=== PATIENT | male | born 1950 | race Caucasian/White ===

== ENCOUNTER 2021-07-01 17:41 | Inpatient (IN) ==
[2021-07-01] MEDS ORDERED: DILTIAZEM 50 MG/10 ML VIAL IV ONE (18:04)
[2021-07-01] MEDS ORDERED: ETOMIDATE 20 MG/10 ML VIAL IV ONE (18:04)
[2021-07-01] MEDS ORDERED: VECURONIUM 10 MG VIAL IV ONE (18:04)
[2021-07-01] MEDS ORDERED: ROCURONIUM 100 MG/10 ML VIAL IV ONE (18:06)
[2021-07-01] MEDS ORDERED: DIGOXIN 0.5 MG/2 ML AMP ONE (18:15)
[2021-07-01] MEDS ORDERED: PIPERACILLIN/TAZOBACTAM 3,375 MG in SODIUM CHLORIDE 0.9% 100 ML IV STA (18:36)
[2021-07-01] MEDS ORDERED: methylPREDNISolone SOD SUC 125 MG/2 ML VIAL IV STA (18:36)
[2021-07-01] MEDS ORDERED: DILTIAZEM 100 MG VIAL.ADD IV ONE (19:01)
[2021-07-01 19:26] LABS: ABG Base Excess -1.3 MMOL/L (-2.5-2.5); ABG HCO3 23.4 MMOL/L (20-26); ABG Oxygen Saturation 99.8 % (95-100); ABG TCO2 26.3 MMOL/L (23-27)
[2021-07-01 19:28] LABS: ABG PCO2 72.6 MM HG (35-48); ABG PH 7.208 (7.35-7.45)
[2021-07-01] MEDS: DILTIAZEM INJ 100 MG in SODIUM CHLORIDE 0.9% 100 ML IV SCH (19:32)
[2021-07-01 19:40] LABS: Lactic Acid 4.6 MMOL/L (0.4-2.0)
[2021-07-01 19:44] LABS: Bilirubin,Total 0.9 MG/DL (0.20-1.00); Calcium 10.8 MG/DL (8.5-10.1); Osmolality,Calculated 300.7 MOS/KG (273-304); Potassium 3.9 MMOL/L (3.5-5.1)
[2021-07-01 20:13] LABS: Hyaline Casts,Urine 14 /LPF (0-3); Mucus,Urine Many /LPF (Occasional); RBC,Urine 1933 /HPF (0-4)
[2021-07-01 20:14] LABS: Urine Appearance Slightly Hazy (Clear); Urine Color Amber (Yellow)
[2021-07-01 20:15] LABS: Urine pH 5.5 (4.5-8.0)
[2021-07-01 20:16] LABS: Bilirubin,Urine Small mg/dL (Negative); Blood, Urine Large mg/dL (Negative); Glucose,Urine (UA) Negative (Negative); Ketones,Urine Negative (Negative); Nitrite,Urine Negative (Negative); Protein,Urine 100 MG/DL; Urine Specific Gravity > 1.030 (1.000-1.030)
[2021-07-01 20:34] LABS: Barbiturates Screen,Urine Negative (Negative); Benzodiazepines Screen,Urine Negative (Negative); Cannabinoid Screen,Urine Negative (Negative); Opiate Screen,Urine Positive (Negative); Phencyclidine Screen,Urine Negative (Negative)
[2021-07-01] MEDS ORDERED: SODIUM CHLORIDE 0.9% 1,000 ML IV STA ×2 (21:07→21:32)
[2021-07-01] MEDS ORDERED: DILTIAZEM 100 MG VIAL.ADD IV STA (21:08)
[2021-07-01 21:18] LABS: Basophils # 0.1 10*3/uL (0.0-0.2); Basophils % 0.5 % (0.0-0.8); Eosinophils # 0.1 10*3/uL (0.0-0.87); Eosinophils % 0.6 % (0.00-10.9); Hematocrit 44.8 VOL% (42.0-52.0); Hemoglobin 13.5 GM/DL (14.0-18.0); Immature Granulocytes % 0.9 %; Lymphocytes # 0.7 10*3/uL (1.4-4.0); Lymphocytes % 6.7 % (21.2-54.2); Mean Corpuscular HGB Conc 30.1 GM/DL (32-36); Mean Corpuscular Volume 98.2 FL (87-102); Mean Platelet Volume 10.4 FL (9.6-12.0); Monocytes % 16.7 % (1.7-12.7); NRBC # 0.03 10*3/uL; Neutrophils % 74.6 % (38.7-73.9); Platelet Count 205 T/CUMM (130-400); Red Blood Count 4.56 MC/CUMM (3.8-5.5); Red Cell Distribution Width 14.9 % (9.3-17.3); White Blood Count 10.8 T/CUMM (4-12)
[2021-07-01 21:45] LABS: Anisocytosis 1+; Band Neutrophils 26 % (0-10); Dohle Bodies 1+; Lymphocytes 3 % (20-55); Macrocytosis 1+; Metamyelocytes 10 %; Microcytosis Slight; Polychromasia 1+; Segmented Neutrophils 45 % (50-85); Total Cells Counted 100; Toxic Granulation 1+
[2021-07-01 21:46] LABS: Atypical Lymphocytes Few; Burr Cells Few; Hypochromia Slight; Poikilocytosis Few
[2021-07-01 21:47] LABS: Platelet Estimate Normal
[2021-07-01] MEDS ORDERED: SODIUM CHLORIDE 0.9% IV STA (22:03)
[2021-07-01] MEDS ORDERED: DIGOXIN IMMUNE FAB IV STA (22:03)
[2021-07-01] MEDS ORDERED: MIDAZOLAM 10 MG/2 ML VIAL ONE (22:30)
[2021-07-01] MEDS ORDERED: MIDAZOLAM 10 MG/2 ML VIAL IV STA (22:36)
[2021-07-01] MEDS: POTASSIUM CHLORIDE RIDER 20 MEQ/100 ML PREMIX IV SCH (22:39)
[2021-07-01] MEDS ORDERED: ACETAMINOPHEN 325 MG TABLET PO PRN (22:49)
[2021-07-01] MEDS ORDERED: ALBUTEROL 2.5 MG/3 ML NEB RESP TX PRN (22:49)
[2021-07-01] MEDS ORDERED: ONDANSETRON 4 MG/2 ML VIAL IV PRN (22:49)
[2021-07-01 23:00] LABS: PT Patient Result 52.4 SECS (10.5-12.0)
[2021-07-01 23:03] LABS: INR 5.2
[2021-07-01] MEDS: MIDAZOLAM 100 MG in SODIUM CHLORIDE 0.9% 80 ML IV PRN (23:22)
[2021-07-01 23:32] LABS: ABG Base Excess -0.2 MMOL/L (-2.5-2.5); ABG HCO3 24.3 MMOL/L (20-26); ABG Oxygen Saturation 99.8 % (95-100); ABG TCO2 23.6 MMOL/L (23-27)
[2021-07-01] MEDS: LACTATED RINGERS 1,000 ML IV SCH (23:45)
[2021-07-01] MEDS: NOREPINEPHRINE 8 MG in SODIUM CHLORIDE 0.9% 242 ML IV PRN (23:55)
[2021-07-01] MEDS ORDERED: NOREPINEPHRINE 4 MG/4 ML VIAL IV ONE (23:56)
[2021-07-02] MEDS: PANTOPRAZOLE 40 MG VIAL IV SCH ×2 (00:27→20:57)
[2021-07-02] MEDS: VANCOMYCIN INJ 1,000 MG in SODIUM CHLORIDE 0.9% 250 ML IV SCH ×2 (00:27→12:14)
[2021-07-02] MEDS: ALBUTEROL/IPRATROPIUM 3 ML NEB RESP TX SCH ×4 (00:39→19:35)
[2021-07-02] MEDS: POTASSIUM CHLORIDE RIDER 20 MEQ/100 ML PREMIX IV SCH (00:54)
[2021-07-02 04:08] LABS: ABG Base Excess -3.6 MMOL/L (-2.5-2.5); ABG Oxygen Saturation 99.4 % (95-100); ABG PCO2 54.7 MM HG (35-48); ABG PO2 313.1 MM HG (80-95); ABG TCO2 25.7 MMOL/L (23-27)
[2021-07-02] MEDS: methylPREDNISolone SOD SUC 40 MG/1 ML VIAL IV SCH ×3 (05:07→18:05)
[2021-07-02] MEDS: PIPERACILLIN/TAZOBACTAM 3,375 MG in SODIUM CHLORIDE 0.9% 100 ML IV SCH ×3 (05:08→20:58)
[2021-07-02 05:15] LABS: Basophils # 0.1 10*3/uL (0.0-0.2); Basophils % 0.5 % (0.0-0.8); Hematocrit 39.2 VOL% (42.0-52.0); Immature Granulocytes % 1.1 %; Immature Granulocytes Absolute 0.17 #; Lymphocytes # 0.5 10*3/uL (1.4-4.0); Lymphocytes % 3.6 % (21.2-54.2); Mean Corpuscular HGB Conc 30.6 GM/DL (32-36); Mean Corpuscular Volume 97.3 FL (87-102); Mean Platelet Volume 10.4 FL (9.6-12.0); Monocytes % 6.3 % (1.7-12.7); NRBC # 0.02 10*3/uL; Neutrophils % 88.5 % (38.7-73.9); Platelet Count 213 T/CUMM (130-400); Red Blood Count 4.03 MC/CUMM (3.8-5.5); Red Cell Distribution Width 14.8 % (9.3-17.3); White Blood Count 14.9 T/CUMM (4-12)
[2021-07-02 05:32] LABS: PT Patient Result 57.8 SECS (10.5-12.0)
[2021-07-02 05:34] LABS: INR 5.8
[2021-07-02 05:40] LABS: Band Neutrophils 14 % (0-10); Lymphocytes 4 % (20-55); Metamyelocytes 1 %; Myelocytes 1 %; Platelet Estimate Adequate; Segmented Neutrophils 73 % (50-85); Total Cells Counted 100
[2021-07-02 06:00] LABS: Albumin 2.4 G/DL (3.4-5.0); Bilirubin,Total 0.9 MG/DL (0.20-1.00); Calcium 9.4 MG/DL (8.5-10.1); Osmolality,Calculated 305.6 MOS/KG (273-304); Potassium 4.7 MMOL/L (3.5-5.1); Total Protein 6.1 G/DL (6.4-8.2)
[2021-07-02] MEDS: DILTIAZEM INJ 100 MG in SODIUM CHLORIDE 0.9% 100 ML IV SCH ×4 (06:27→20:44)
[2021-07-02] MEDS ORDERED: METOPROLOL TARTRATE 5 MG/5 ML VIAL IV ONE ×2 (06:35→14:55)
[2021-07-02] MEDS: LACTATED RINGERS 1,000 ML IV SCH ×2 (07:53→15:53)
[2021-07-02] MEDS ORDERED: SODIUM CHLORIDE 0.9% 1,000 ML IV ONE (09:58)
[2021-07-02] MEDS ORDERED: LACTATED RINGERS 1,000 ML IV ONE (10:10)
[2021-07-02] MEDS ORDERED: GLUCAGON 1 MG VIAL IM PRN (10:14)
[2021-07-02] MEDS ORDERED: DEXTROSE 10% 25 GM/250 ML BAG IV PRN (10:14)
[2021-07-02] MEDS: METOPROLOL TARTRATE 5 MG/5 ML VIAL IV PRN ×2 (10:50→20:57)
[2021-07-02 11:01] LABS: ABG Base Excess -6.1 MMOL/L (-2.5-2.5); ABG HCO3 19.4 MMOL/L (20-26); ABG Oxygen Saturation 96.4 % (95-100); ABG PCO2 53.3 MM HG (35-48); ABG PH 7.227 (7.35-7.45); ABG PO2 95.9 MM HG (80-95); ABG TCO2 20.2 MMOL/L (23-27)
[2021-07-02] MEDS: PHENYLEPHRINE DRIP 40 MG/250 ML PREMIX IV PRN ×3 (11:12→18:05)
[2021-07-02] MEDS: INSULIN LISPRO 100 UNIT/ML SUBCUT SCH ×2 (11:32→17:39)
[2021-07-02 13:10] LABS: ABG Base Excess -5.4 MMOL/L (-2.5-2.5); ABG Oxygen Saturation 95.5 % (95-100); ABG PH 7.262 (7.35-7.45); ABG PO2 90.3 MM HG (80-95); ABG TCO2 19.9 MMOL/L (23-27)
[2021-07-02] MEDS ORDERED: SODIUM CHLORIDE 0.9% 500 ML IV ONE ×2 (14:55→16:59)
[2021-07-02 15:40] LABS: ABG Base Excess -6.8 MMOL/L (-2.5-2.5); ABG HCO3 18.9 MMOL/L (20-26); ABG Oxygen Saturation 97.1 % (95-100); ABG PCO2 47.8 MM HG (35-48); ABG PH 7.245 (7.35-7.45); ABG TCO2 18.8 MMOL/L (23-27)
[2021-07-02] MEDS ORDERED: NOREPINEPHRINE 4 MG/4 ML VIAL IV ONE (15:44)
[2021-07-02] MEDS: NOREPINEPHRINE 8 MG in SODIUM CHLORIDE 0.9% 242 ML IV PRN (15:49)
[2021-07-02 16:24] LABS: Basophils # 0.2 10*3/uL (0.0-0.2); Basophils % 0.6 % (0.0-0.8); Hematocrit 39.5 VOL% (42.0-52.0); Immature Granulocytes Absolute 1.07 #; Lymphocytes # 0.4 10*3/uL (1.4-4.0); Lymphocytes % 1.6 % (21.2-54.2); Mean Corpuscular HGB Conc 30.4 GM/DL (32-36); Mean Platelet Volume 10.4 FL (9.6-12.0); Monocytes % 4.1 % (1.7-12.7); NRBC # 0.15 10*3/uL; Neutrophils % 89.7 % (38.7-73.9); Platelet Count 273 T/CUMM (130-400); Red Blood Count 4.03 MC/CUMM (3.8-5.5)
[2021-07-02 16:42] LABS: Blood Urea Nitrogen 55 MG/DL (7-18); Calcium 9.6 MG/DL (8.5-10.1); Carbon Dioxide 20 MMOL/L (21-32); Estimated Glom Filtration Rate 55 ML/MIN; Glucose 130 MG/DL (74-106); Osmolality,Calculated 304.7 MOS/KG (273-304); Potassium 4.5 MMOL/L (3.5-5.1); Sodium 145 MMOL/L (136-145)
[2021-07-02 17:45] LABS: Band Neutrophils 1 % (0-10); Lymphocytes 5 % (20-55); Metamyelocytes 4 %; Nucleated Red Blood Cells 1 (0-5); Segmented Neutrophils 78 % (50-85); Total Cells Counted 100
[2021-07-02 17:46] LABS: Platelet Estimate Normal
[2021-07-02] MEDS ORDERED: AMIODARONE INJ 150 MG in DEXTROSE 5% 100 ML IV ONE (18:25)
[2021-07-02] MEDS ORDERED: LORazepam 2 MG/1 ML VIAL IV PRN (18:26)
[2021-07-02] MEDS ORDERED: AMIODARONE 150 MG/3 ML VIAL ONE (18:28)
[2021-07-02] MEDS ORDERED: MORPHINE 4 MG/1 ML VIAL ONE (18:28)
[2021-07-02] MEDS ORDERED: MORPHINE 4 MG/1 ML VIAL IV PRN (18:36)
[2021-07-02] MEDS: PHENYLEPHRINE INJ 160 MG in SODIUM CHLORIDE 0.9% 234 ML IV PRN (20:12)
[2021-07-02] MEDS: DOCUSATE/SENNA 50-8.6 MG TABLET PO SCH (20:57)
[2021-07-02] MEDS: DIVALPROEX 250 MG TABLET PO SCH (20:57)
[2021-07-03] MEDS: LACTATED RINGERS 1,000 ML IV SCH ×3 (00:15→17:00)
[2021-07-03] MEDS: VANCOMYCIN INJ 1,000 MG in SODIUM CHLORIDE 0.9% 250 ML IV SCH (00:31)
[2021-07-03] MEDS: INSULIN LISPRO 100 UNIT/ML SUBCUT SCH ×4 (00:33→18:22)
[2021-07-03] MEDS: ALBUTEROL/IPRATROPIUM 3 ML NEB RESP TX SCH ×4 (01:15→19:07)
[2021-07-03 04:01] LABS: ABG Base Excess -6.6 MMOL/L (-2.5-2.5); ABG Oxygen Saturation 95.1 % (95-100); ABG PCO2 50.3 MM HG (35-48); ABG PH 7.234 (7.35-7.45); ABG PO2 87.1 MM HG (80-95); ABG TCO2 19.4 MMOL/L (23-27)
[2021-07-03 04:03] LABS: Basophils # 0.2 10*3/uL (0.0-0.2); Basophils % 0.6 % (0.0-0.8); Immature Granulocytes Absolute 0.58 #; Lymphocytes # 0.9 10*3/uL (1.4-4.0); Lymphocytes % 3.2 % (21.2-54.2); Mean Corpuscular HGB Conc 30.8 GM/DL (32-36); Mean Corpuscular Volume 96.5 FL (87-102); Mean Platelet Volume 10.1 FL (9.6-12.0); Monocytes % 3.7 % (1.7-12.7); NRBC # 0.25 10*3/uL; Neutrophils % 90.5 % (38.7-73.9); Platelet Count 290 T/CUMM (130-400); Red Blood Count 4.04 MC/CUMM (3.8-5.5); Red Cell Distribution Width 15.2 % (9.3-17.3); White Blood Count 29.1 T/CUMM (4-12)
[2021-07-03] MEDS: PIPERACILLIN/TAZOBACTAM 3,375 MG in SODIUM CHLORIDE 0.9% 100 ML IV SCH ×3 (04:17→20:56)
[2021-07-03] MEDS: methylPREDNISolone SOD SUC 40 MG/1 ML VIAL IV SCH ×3 (04:18→19:51)
[2021-07-03] MEDS: DILTIAZEM INJ 100 MG in SODIUM CHLORIDE 0.9% 100 ML IV SCH (04:20)
[2021-07-03] MEDS: PHENYLEPHRINE INJ 160 MG in SODIUM CHLORIDE 0.9% 234 ML IV PRN ×3 (04:20→23:09)
[2021-07-03 04:27] LABS: Band Neutrophils 4 % (0-10); Hypochromia Slight; Lymphocytes 3 % (20-55); Microcytosis Slight; Myelocytes 1 %; Nucleated Red Blood Cells 3 (0-5); Platelet Estimate Adequate; Segmented Neutrophils 85 % (50-85); Total Cells Counted 100
[2021-07-03 04:36] LABS: Albumin 1.9 G/DL (3.4-5.0); Bilirubin,Total 1.3 MG/DL (0.20-1.00); Calcium 9.1 MG/DL (8.5-10.1); Osmolality,Calculated 311.4 MOS/KG (273-304); Potassium 4.3 MMOL/L (3.5-5.1); Total Protein 6.2 G/DL (6.4-8.2)
[2021-07-03 04:59] LABS: PT Patient Result 112.2 SECS (10.5-12.0)
[2021-07-03 05:00] LABS: INR 12.1
[2021-07-03 05:02] LABS: Free T4 (Free Thyroxine) 1.2 NG/DL (0.76-1.46); Thyroid Stimulating Hormone 0.348 uIU/ml (0.358-3.74)
[2021-07-03] MEDS: NICOTINE 21 MG/24 HR PATCH TRANSDERM SCH ×2 (05:20→08:05)
[2021-07-03] MEDS ORDERED: PHYTONADIONE 5 MG/5 ML ORAL.SYR PO ONE (05:23)
[2021-07-03] MEDS ORDERED: SODIUM CHLORIDE 0.45% 1,000 ML IV ONE (08:06)
[2021-07-03] MEDS: DOCUSATE/SENNA 50-8.6 MG TABLET PO SCH ×2 (08:07→20:55)
[2021-07-03] MEDS: METOPROLOL TARTRATE 5 MG/5 ML VIAL IV PRN ×3 (11:57→19:51)
[2021-07-03] MEDS: fentaNYL INJ 1,250 MCG in SODIUM CHLORIDE 0.9% 225 ML IV PRN (15:45)
[2021-07-03] MEDS ORDERED: AMIODARONE INJ 150 MG in DEXTROSE 5% 100 ML IV ONE ×3 (17:23→18:00)
[2021-07-03] MEDS ORDERED: AMIODARONE INJ 450 MG in DEXTROSE 5% 241 ML IV SCH (17:30)
[2021-07-03] MEDS: METOCLOPRAMIDE 10 MG/2 ML VIAL IV SCH (18:28)
[2021-07-03] MEDS: DIVALPROEX 250 MG TABLET PO SCH (20:54)
[2021-07-03] MEDS: busPIRone 10 MG TABLET PO SCH (20:54)
[2021-07-03] MEDS: PANTOPRAZOLE 40 MG VIAL IV SCH (20:55)
[2021-07-03] MEDS: TOPIRAMATE 100 MG TABLET PO SCH (20:55)
[2021-07-04] MEDS: INSULIN LISPRO 100 UNIT/ML SUBCUT SCH ×5 (00:47→23:13)
[2021-07-04] MEDS: ALBUTEROL/IPRATROPIUM 3 ML NEB RESP TX SCH ×4 (00:52→19:53)
[2021-07-04] MEDS: METOCLOPRAMIDE 10 MG/2 ML VIAL IV SCH ×5 (01:45→23:43)
[2021-07-04] MEDS: VANCOMYCIN INJ 1,000 MG in SODIUM CHLORIDE 0.9% 250 ML IV SCH (01:45)
[2021-07-04] MEDS: methylPREDNISolone SOD SUC 40 MG/1 ML VIAL IV SCH ×3 (02:25→18:36)
[2021-07-04] MEDS: AMIODARONE INJ 450 MG in DEXTROSE 5% 241 ML IV SCH ×2 (02:25→18:17)
[2021-07-04] MEDS: LACTATED RINGERS 1,000 ML IV SCH (02:25)
[2021-07-04] MEDS: MIDAZOLAM 100 MG in SODIUM CHLORIDE 0.9% 80 ML IV PRN (03:23)
[2021-07-04] MEDS: PIPERACILLIN/TAZOBACTAM 3,375 MG in SODIUM CHLORIDE 0.9% 100 ML IV SCH ×3 (04:09→20:22)
[2021-07-04 04:16] LABS: Basophils # 0.1 10*3/uL (0.0-0.2); Basophils % 0.3 % (0.0-0.8); Hemoglobin 11.7 GM/DL (14.0-18.0); Immature Granulocytes % 3.2 %; Immature Granulocytes Absolute 1.24 #; Lymphocytes # 1.1 10*3/uL (1.4-4.0); Lymphocytes % 2.8 % (21.2-54.2); Mean Corpuscular HGB Conc 31.6 GM/DL (32-36); Mean Corpuscular Volume 94.4 FL (87-102); Mean Platelet Volume 9.7 FL (9.6-12.0); Monocytes % 2.6 % (1.7-12.7); NRBC # 0.35 10*3/uL; Neutrophils % 91.1 % (38.7-73.9); Platelet Count 277 T/CUMM (130-400); Red Blood Count 3.92 MC/CUMM (3.8-5.5); Red Cell Distribution Width 15.6 % (9.3-17.3); White Blood Count 38.6 T/CUMM (4-12)
[2021-07-04 04:20] LABS: ABG Base Excess -4.1 MMOL/L (-2.5-2.5); ABG Oxygen Saturation 98.7 % (95-100); ABG PCO2 47.6 MM HG (35-48); ABG PH 7.288 (7.35-7.45); ABG TCO2 20.6 MMOL/L (23-27)
[2021-07-04 04:28] LABS: INR 1.7; PT Patient Result 18.2 SECS (10.5-12.0)
[2021-07-04 05:10] LABS: Albumin 1.8 G/DL (3.4-5.0); Bilirubin,Total 0.9 MG/DL (0.20-1.00); Calcium 9.3 MG/DL (8.5-10.1); Osmolality,Calculated 313.6 MOS/KG (273-304); Potassium 4.7 MMOL/L (3.5-5.1)
[2021-07-04] MEDS: fentaNYL INJ 1,250 MCG in SODIUM CHLORIDE 0.9% 225 ML IV PRN (05:19)
[2021-07-04 05:30] LABS: Band Neutrophils 5 % (0-10); Lymphocytes 7 % (20-55); Nucleated Red Blood Cells 1 (0-5); Platelet Estimate Normal; Segmented Neutrophils 85 % (50-85); Total Cells Counted 100
[2021-07-04] MEDS: LEVOTHYROXINE 75 MCG TABLET PO SCH (05:46)
[2021-07-04] MEDS ORDERED: INFLUENZA VIRUS VACCINE 0.5 ML SYRINGE IM ONE (08:00)
[2021-07-04] MEDS: NICOTINE 21 MG/24 HR PATCH TRANSDERM SCH (08:07)
[2021-07-04] MEDS: ASPIRIN EC 81 MG TABLET PO SCH (08:07)
[2021-07-04] MEDS: TOPIRAMATE 100 MG TABLET PO SCH ×2 (08:07→20:21)
[2021-07-04] MEDS: busPIRone 10 MG TABLET PO SCH ×2 (08:07→20:21)
[2021-07-04] MEDS: DOCUSATE/SENNA 50-8.6 MG TABLET PO SCH ×2 (08:07→20:21)
[2021-07-04] MEDS: LACTULOSE 20 GM/30 ML UDCUP PO SCH (08:07)
[2021-07-04] MEDS: METOPROLOL TARTRATE 5 MG/5 ML VIAL IV PRN (08:27)
[2021-07-04] MEDS: PHENYLEPHRINE INJ 160 MG in SODIUM CHLORIDE 0.9% 234 ML IV PRN (10:47)
[2021-07-04] MEDS ORDERED: DIGOXIN 0.5 MG/2 ML AMP IV ONE (12:16)
[2021-07-04] MEDS: ENOXAPARIN 80 MG/0.8 ML SYRINGE SUBCUT SCH (12:52)
[2021-07-04] MEDS: WARFARIN 2.5 MG TABLET PO SCH (18:28)
[2021-07-04] MEDS: SIMVASTATIN 40 MG TABLET PO SCH (20:21)
[2021-07-04] MEDS: DIVALPROEX 250 MG TABLET PO SCH (20:21)
[2021-07-04] MEDS: PANTOPRAZOLE 40 MG VIAL IV SCH (20:22)
[2021-07-05] MEDS: ENOXAPARIN 80 MG/0.8 ML SYRINGE SUBCUT SCH ×2 (00:09→12:57)
[2021-07-05] MEDS: ALBUTEROL/IPRATROPIUM 3 ML NEB RESP TX SCH ×4 (00:36→19:50)
[2021-07-05] MEDS: VANCOMYCIN INJ 1,000 MG in SODIUM CHLORIDE 0.9% 250 ML IV SCH (00:43)
[2021-07-05 03:59] LABS: Basophils # 0.1 10*3/uL (0.0-0.2); Basophils % 0.3 % (0.0-0.8); Hematocrit 33.5 VOL% (42.0-52.0); Hemoglobin 10.4 GM/DL (14.0-18.0); Immature Granulocytes % 4.1 %; Immature Granulocytes Absolute 1.33 #; Lymphocytes # 1.5 10*3/uL (1.4-4.0); Lymphocytes % 4.6 % (21.2-54.2); Mean Platelet Volume 9.7 FL (9.6-12.0); Monocytes % 3.2 % (1.7-12.7); NRBC # 0.11 10*3/uL; Neutrophils % 87.8 % (38.7-73.9); Platelet Count 187 T/CUMM (130-400); Red Blood Count 3.49 MC/CUMM (3.8-5.5); Red Cell Distribution Width 15.9 % (9.3-17.3); White Blood Count 32.2 T/CUMM (4-12)
[2021-07-05 04:12] LABS: INR 1.4; PT Patient Result 15.5 SECS (10.5-12.0)
[2021-07-05] MEDS: methylPREDNISolone SOD SUC 40 MG/1 ML VIAL IV SCH ×3 (04:14→18:26)
[2021-07-05 04:15] LABS: ABG Base Excess -1.6 MMOL/L (-2.5-2.5); ABG HCO3 23.1 MMOL/L (20-26); ABG Oxygen Saturation 98.7 % (95-100); ABG PCO2 47.2 MM HG (35-48); ABG PH 7.325 (7.35-7.45); ABG TCO2 22.6 MMOL/L (23-27)
[2021-07-05] MEDS: PIPERACILLIN/TAZOBACTAM 3,375 MG in SODIUM CHLORIDE 0.9% 100 ML IV SCH ×3 (04:15→20:23)
[2021-07-05 04:21] LABS: Band Neutrophils 1 % (0-10); Hypochromia Slight; Lymphocytes 6 % (20-55); Microcytosis Slight; Platelet Estimate Adequate; Segmented Neutrophils 90 % (50-85); Total Cells Counted 100
[2021-07-05] MEDS: PHENYLEPHRINE INJ 160 MG in SODIUM CHLORIDE 0.9% 234 ML IV PRN (04:35)
[2021-07-05 04:56] LABS: Albumin 1.7 G/DL (3.4-5.0); Bilirubin,Total 0.7 MG/DL (0.20-1.00); Calcium 9.1 MG/DL (8.5-10.1); Osmolality,Calculated 317.3 MOS/KG (273-304); Potassium 4.1 MMOL/L (3.5-5.1); Total Protein 5.5 G/DL (6.4-8.2)
[2021-07-05] MEDS: INSULIN LISPRO 100 UNIT/ML SUBCUT SCH ×3 (05:22→17:39)
[2021-07-05] MEDS: METOCLOPRAMIDE 10 MG/2 ML VIAL IV SCH ×3 (05:22→17:39)
[2021-07-05] MEDS: LEVOTHYROXINE 75 MCG TABLET PO SCH (05:37)
[2021-07-05] MEDS: NICOTINE 21 MG/24 HR PATCH TRANSDERM SCH (08:27)
[2021-07-05] MEDS: LACTULOSE 20 GM/30 ML UDCUP PO SCH (08:27)
[2021-07-05] MEDS: busPIRone 10 MG TABLET PO SCH ×2 (08:27→20:24)
[2021-07-05] MEDS: ASPIRIN EC 81 MG TABLET PO SCH (08:27)
[2021-07-05] MEDS: DOCUSATE/SENNA 50-8.6 MG TABLET PO SCH ×2 (08:27→20:23)
[2021-07-05] MEDS: TOPIRAMATE 100 MG TABLET PO SCH ×2 (08:27→20:23)
[2021-07-05] MEDS: AMIODARONE INJ 450 MG in DEXTROSE 5% 241 ML IV SCH (11:23)
[2021-07-05] MEDS: fentaNYL INJ 1,250 MCG in SODIUM CHLORIDE 0.9% 225 ML IV PRN (11:43)
[2021-07-05] MEDS: WARFARIN 5 MG TABLET PO SCH (17:38)
[2021-07-05] MEDS: DIVALPROEX 250 MG TABLET PO SCH (20:23)
[2021-07-05] MEDS: PANTOPRAZOLE 40 MG VIAL IV SCH (20:23)
[2021-07-05] MEDS: SIMVASTATIN 40 MG TABLET PO SCH (20:23)
[2021-07-06] MEDS: INSULIN LISPRO 100 UNIT/ML SUBCUT SCH ×5 (00:01→23:23)
[2021-07-06] MEDS: METOCLOPRAMIDE 10 MG/2 ML VIAL IV SCH ×4 (00:02→18:26)
[2021-07-06] MEDS: ENOXAPARIN 80 MG/0.8 ML SYRINGE SUBCUT SCH ×2 (00:02→13:43)
[2021-07-06] MEDS: VANCOMYCIN INJ 1,000 MG in SODIUM CHLORIDE 0.9% 250 ML IV SCH (00:02)
[2021-07-06] MEDS: ALBUTEROL/IPRATROPIUM 3 ML NEB RESP TX SCH ×4 (01:39→19:00)
[2021-07-06] MEDS: AMIODARONE INJ 450 MG in DEXTROSE 5% 241 ML IV SCH ×2 (02:11→05:51)
[2021-07-06] MEDS: methylPREDNISolone SOD SUC 40 MG/1 ML VIAL IV SCH ×3 (03:09→19:10)
[2021-07-06 04:05] LABS: ABG Base Excess 0.5 MMOL/L (-2.5-2.5); ABG HCO3 24.9 MMOL/L (20-26); ABG Oxygen Saturation 98.7 % (95-100); ABG PCO2 46.7 MM HG (35-48); ABG PH 7.358 (7.35-7.45); ABG TCO2 24.2 MMOL/L (23-27)
[2021-07-06 04:15] LABS: Basophils % 0.1 % (0.0-0.8); Hematocrit 31.4 VOL% (42.0-52.0); Hemoglobin 9.9 GM/DL (14.0-18.0); Immature Granulocytes % 3.4 %; Immature Granulocytes Absolute 0.77 #; Lymphocytes # 1.2 10*3/uL (1.4-4.0); Lymphocytes % 5.2 % (21.2-54.2); Mean Corpuscular HGB Conc 31.5 GM/DL (32-36); Mean Corpuscular Volume 94.6 FL (87-102); Mean Platelet Volume 9.4 FL (9.6-12.0); Monocytes % 2.8 % (1.7-12.7); NRBC # 0.06 10*3/uL; Neutrophils % 88.5 % (38.7-73.9); Platelet Count 129 T/CUMM (130-400); Red Blood Count 3.32 MC/CUMM (3.8-5.5); Red Cell Distribution Width 15.6 % (9.3-17.3); White Blood Count 22.5 T/CUMM (4-12)
[2021-07-06] MEDS: PIPERACILLIN/TAZOBACTAM 3,375 MG in SODIUM CHLORIDE 0.9% 100 ML IV SCH (04:15)
[2021-07-06 04:24] LABS: INR 1.5; PT Patient Result 16.8 SECS (10.5-12.0)
[2021-07-06 04:33] LABS: Hypochromia Slight; Lymphocytes 3 % (20-55); Platelet Estimate Normal; Segmented Neutrophils 94 % (50-85); Total Cells Counted 100
[2021-07-06 04:34] LABS: Microcytosis Slight
[2021-07-06 04:47] LABS: Albumin 1.7 G/DL (3.4-5.0); Bilirubin,Total 0.5 MG/DL (0.20-1.00); Calcium 8.9 MG/DL (8.5-10.1); Osmolality,Calculated 315.1 MOS/KG (273-304); Potassium 4.1 MMOL/L (3.5-5.1); Total Protein 5.4 G/DL (6.4-8.2)
[2021-07-06] MEDS: LEVOTHYROXINE 75 MCG TABLET PO SCH (06:04)
[2021-07-06] MEDS ORDERED: POTASSIUM PHOSPHATE 30 MMOL in SODIUM CHLORIDE 0.9% 250 ML IV ONE (09:00)
[2021-07-06] MEDS: NICOTINE 21 MG/24 HR PATCH TRANSDERM SCH (09:35)
[2021-07-06] MEDS: TOPIRAMATE 100 MG TABLET PO SCH ×2 (09:36→20:11)
[2021-07-06] MEDS: busPIRone 10 MG TABLET PO SCH ×2 (09:36→20:11)
[2021-07-06] MEDS: ASPIRIN EC 81 MG TABLET PO SCH (09:36)
[2021-07-06] MEDS: DOCUSATE/SENNA 50-8.6 MG TABLET PO SCH ×2 (09:36→20:11)
[2021-07-06] MEDS: LACTULOSE 20 GM/30 ML UDCUP PO SCH (09:42)
[2021-07-06] MEDS: METOPROLOL TARTRATE 25 MG TABLET PO SCH ×2 (10:43→20:11)
[2021-07-06] MEDS: cefTRIAXone 1,000 MG in SODIUM CHLORIDE 0.9% 100 ML IV SCH (13:43)
[2021-07-06] MEDS: WARFARIN 5 MG TABLET PO SCH (18:24)
[2021-07-06] MEDS: MIDAZOLAM 100 MG in SODIUM CHLORIDE 0.9% 80 ML IV PRN (18:28)
[2021-07-06] MEDS: DIVALPROEX 250 MG TABLET PO SCH (20:11)
[2021-07-06] MEDS: PANTOPRAZOLE 40 MG VIAL IV SCH (20:11)
[2021-07-06] MEDS: SIMVASTATIN 40 MG TABLET PO SCH (20:11)
[2021-07-07] MEDS: ENOXAPARIN 80 MG/0.8 ML SYRINGE SUBCUT SCH ×3 (00:06→23:56)
[2021-07-07] MEDS: VANCOMYCIN INJ 1,000 MG in SODIUM CHLORIDE 0.9% 250 ML IV SCH (00:06)
[2021-07-07] MEDS: METOCLOPRAMIDE 10 MG/2 ML VIAL IV SCH ×5 (00:06→23:56)
[2021-07-07] MEDS: ALBUTEROL/IPRATROPIUM 3 ML NEB RESP TX SCH ×4 (01:19→21:35)
[2021-07-07] MEDS: methylPREDNISolone SOD SUC 40 MG/1 ML VIAL IV SCH ×3 (03:40→18:59)
[2021-07-07 04:13] LABS: ABG Base Excess 3.1 MMOL/L (-2.5-2.5); ABG HCO3 27.8 MMOL/L (20-26); ABG Oxygen Saturation 96.2 % (95-100); ABG PCO2 43.5 MM HG (35-48); ABG PH 7.424 (7.35-7.45); ABG PO2 84.7 MM HG (80-95); ABG TCO2 29.2 MMOL/L (23-27)
[2021-07-07 04:22] LABS: Basophils # 0.1 10*3/uL (0.0-0.2); Basophils % 0.2 % (0.0-0.8); Hematocrit 30.4 VOL% (42.0-52.0); Hemoglobin 9.4 GM/DL (14.0-18.0); Immature Granulocytes % 5.4 %; Immature Granulocytes Absolute 1.13 #; Lymphocytes # 0.9 10*3/uL (1.4-4.0); Lymphocytes % 4.2 % (21.2-54.2); Mean Corpuscular HGB Conc 30.9 GM/DL (32-36); Mean Corpuscular Volume 94.7 FL (87-102); Mean Platelet Volume 9.9 FL (9.6-12.0); Monocytes % 3.3 % (1.7-12.7); NRBC # 0.07 10*3/uL; Neutrophils % 86.9 % (38.7-73.9); Platelet Count 110 T/CUMM (130-400); Red Blood Count 3.21 MC/CUMM (3.8-5.5); Red Cell Distribution Width 15.5 % (9.3-17.3); White Blood Count 20.7 T/CUMM (4-12)
[2021-07-07 04:41] LABS: INR 1.7; PT Patient Result 18.4 SECS (10.5-12.0)
[2021-07-07 04:42] LABS: Potassium 3.5 MMOL/L (3.5-5.1)
[2021-07-07 04:45] LABS: Osmolality,Calculated 312.9 MOS/KG (273-304)
[2021-07-07 04:48] LABS: Band Neutrophils 1 % (0-10); Hypochromia Slight; Lymphocytes 4 % (20-55); Microcytosis Slight; Nucleated Red Blood Cells 1 (0-5); Platelet Estimate Decreased; Segmented Neutrophils 93 % (50-85); Total Cells Counted 100
[2021-07-07] MEDS: LEVOTHYROXINE 75 MCG TABLET PO SCH (06:01)
[2021-07-07] MEDS: INSULIN LISPRO 100 UNIT/ML SUBCUT SCH ×4 (06:01→23:56)
[2021-07-07] MEDS ORDERED: FUROSEMIDE 40 MG/4 ML VIAL IV ONE (08:13)
[2021-07-07] MEDS: NICOTINE 21 MG/24 HR PATCH TRANSDERM SCH (08:44)
[2021-07-07] MEDS: ASPIRIN EC 81 MG TABLET PO SCH (08:44)
[2021-07-07] MEDS: DOCUSATE/SENNA 50-8.6 MG TABLET PO SCH ×2 (08:44→20:26)
[2021-07-07] MEDS: TOPIRAMATE 100 MG TABLET PO SCH ×2 (08:45→20:26)
[2021-07-07] MEDS: METOPROLOL TARTRATE 25 MG TABLET PO SCH ×2 (08:45→20:25)
[2021-07-07] MEDS: LACTULOSE 20 GM/30 ML UDCUP PO SCH (08:45)
[2021-07-07] MEDS: busPIRone 10 MG TABLET PO SCH ×2 (08:48→20:25)
[2021-07-07] MEDS ORDERED: METOPROLOL TARTRATE 25 MG TABLET PO ONE (09:24)
[2021-07-07] MEDS: cefTRIAXone 1,000 MG in SODIUM CHLORIDE 0.9% 100 ML IV SCH (10:36)
[2021-07-07] MEDS: WARFARIN 2.5 MG TABLET PO SCH (18:47)
[2021-07-07] MEDS: PANTOPRAZOLE 40 MG VIAL IV SCH (20:25)
[2021-07-07] MEDS: DIVALPROEX 250 MG TABLET PO SCH (20:25)
[2021-07-07] MEDS: SIMVASTATIN 40 MG TABLET PO SCH (20:26)
[2021-07-08] MEDS: VANCOMYCIN INJ 1,000 MG in SODIUM CHLORIDE 0.9% 250 ML IV SCH ×2 (00:48→18:05)
[2021-07-08] MEDS: ALBUTEROL/IPRATROPIUM 3 ML NEB RESP TX SCH ×4 (01:22→20:00)
[2021-07-08] MEDS: methylPREDNISolone SOD SUC 40 MG/1 ML VIAL IV SCH ×3 (02:52→18:02)
[2021-07-08 03:31] LABS: ABG Base Excess 6.9 MMOL/L (-2.5-2.5); ABG HCO3 30.7 MMOL/L (20-26); ABG Oxygen Saturation 97.4 % (95-100); ABG PCO2 42.6 MM HG (35-48); ABG PH 7.473 (7.35-7.45); ABG PO2 89.5 MM HG (80-95); ABG TCO2 28.7 MMOL/L (23-27)
[2021-07-08 03:54] LABS: Albumin 1.6 G/DL (3.4-5.0); Bilirubin,Total 0.4 MG/DL (0.20-1.00); Calcium 8.8 MG/DL (8.5-10.1); Osmolality,Calculated 309.9 MOS/KG (273-304); Potassium 3.3 MMOL/L (3.5-5.1); Total Protein 4.9 G/DL (6.4-8.2)
[2021-07-08 03:55] LABS: Basophils % 0.2 % (0.0-0.8); Eosinophils % 0.2 % (0.00-10.9); Hematocrit 27.7 VOL% (42.0-52.0); Hemoglobin 8.7 GM/DL (14.0-18.0); Immature Granulocytes % 7.2 %; Immature Granulocytes Absolute 1.22 #; Lymphocytes # 0.8 10*3/uL (1.4-4.0); Lymphocytes % 4.8 % (21.2-54.2); Mean Corpuscular HGB Conc 31.4 GM/DL (32-36); Mean Corpuscular Volume 95.5 FL (87-102); Mean Platelet Volume 10.3 FL (9.6-12.0); Monocytes % 2.6 % (1.7-12.7); NRBC # 0.04 10*3/uL; Platelet Count 103 T/CUMM (130-400); Red Cell Distribution Width 15.5 % (9.3-17.3)
[2021-07-08 04:07] LABS: INR 1.5; PT Patient Result 16.9 SECS (10.5-12.0)
[2021-07-08 04:28] LABS: Band Neutrophils 1 % (0-10); Hypochromia 1+; Lymphocytes 5 % (20-55); Microcytosis 1+; Platelet Estimate Decreased; Segmented Neutrophils 92 % (50-85); Total Cells Counted 100
[2021-07-08] MEDS: LEVOTHYROXINE 75 MCG TABLET PO SCH (06:07)
[2021-07-08] MEDS: METOCLOPRAMIDE 10 MG/2 ML VIAL IV SCH ×3 (06:07→17:33)
[2021-07-08] MEDS: INSULIN LISPRO 100 UNIT/ML SUBCUT SCH ×3 (06:07→17:33)
[2021-07-08] MEDS: fentaNYL INJ 1,250 MCG in SODIUM CHLORIDE 0.9% 225 ML IV PRN (08:15)
[2021-07-08] MEDS: LACTULOSE 20 GM/30 ML UDCUP PO SCH (08:42)
[2021-07-08] MEDS: NICOTINE 21 MG/24 HR PATCH TRANSDERM SCH (08:42)
[2021-07-08] MEDS: TOPIRAMATE 100 MG TABLET PO SCH ×2 (08:42→21:27)
[2021-07-08] MEDS: DOCUSATE/SENNA 50-8.6 MG TABLET PO SCH ×2 (08:43→22:03)
[2021-07-08] MEDS: busPIRone 10 MG TABLET PO SCH ×2 (08:43→21:29)
[2021-07-08] MEDS: ASPIRIN EC 81 MG TABLET PO SCH (08:43)
[2021-07-08] MEDS: METOPROLOL TARTRATE 25 MG TABLET PO SCH ×2 (08:43→21:28)
[2021-07-08] MEDS: POTASSIUM CHLORIDE 20 MEQ TABLET PO PRN ×2 (08:49→18:29)
[2021-07-08] MEDS: cefTRIAXone 1,000 MG in SODIUM CHLORIDE 0.9% 100 ML IV SCH (11:28)
[2021-07-08] MEDS: ENOXAPARIN 80 MG/0.8 ML SYRINGE SUBCUT SCH (11:38)
[2021-07-08] MEDS: WARFARIN 5 MG TABLET PO SCH ×2 (17:36→18:29)
[2021-07-08] MEDS: SIMVASTATIN 40 MG TABLET PO SCH (21:27)
[2021-07-08] MEDS: DIVALPROEX 250 MG TABLET PO SCH (21:27)
[2021-07-08] MEDS: PANTOPRAZOLE 40 MG VIAL IV SCH (21:28)
[2021-07-09] MEDS: ALBUTEROL/IPRATROPIUM 3 ML NEB RESP TX SCH ×4 (00:45→19:00)
[2021-07-09] MEDS: METOCLOPRAMIDE 10 MG/2 ML VIAL IV SCH ×4 (00:47→18:23)
[2021-07-09] MEDS: ENOXAPARIN 80 MG/0.8 ML SYRINGE SUBCUT SCH ×2 (00:48→11:40)
[2021-07-09] MEDS: INSULIN LISPRO 100 UNIT/ML SUBCUT SCH ×5 (00:55→23:55)
[2021-07-09] MEDS: methylPREDNISolone SOD SUC 40 MG/1 ML VIAL IV SCH ×3 (02:32→18:23)
[2021-07-09 03:38] LABS: ABG Base Excess 3.3 MMOL/L (-2.5-2.5); ABG HCO3 26.8 MMOL/L (20-26); ABG Oxygen Saturation 93.6 % (95-100); ABG PCO2 35.9 MM HG (35-48); ABG PH 7.491 (7.35-7.45); ABG PO2 67.4 MM HG (80-95); ABG TCO2 27.9 MMOL/L (23-27)
[2021-07-09 03:53] LABS: Basophils % 0.2 % (0.0-0.8); Eosinophils % 0.2 % (0.00-10.9); Hematocrit 26.4 VOL% (42.0-52.0); Hemoglobin 8.4 GM/DL (14.0-18.0); Immature Granulocytes % 5.8 %; Immature Granulocytes Absolute 1.06 #; Lymphocytes # 0.7 10*3/uL (1.4-4.0); Lymphocytes % 3.8 % (21.2-54.2); Mean Corpuscular HGB Conc 31.8 GM/DL (32-36); Mean Corpuscular Volume 93.6 FL (87-102); Mean Platelet Volume 10.7 FL (9.6-12.0); Platelet Count 112 T/CUMM (130-400); Red Blood Count 2.82 MC/CUMM (3.8-5.5); Red Cell Distribution Width 15.3 % (9.3-17.3); White Blood Count 18.2 T/CUMM (4-12)
[2021-07-09 04:35] LABS: Albumin 1.7 G/DL (3.4-5.0); Bilirubin,Total 0.4 MG/DL (0.20-1.00); Calcium 8.7 MG/DL (8.5-10.1); Osmolality,Calculated 305.9 MOS/KG (273-304); Potassium 3.6 MMOL/L (3.5-5.1); Total Protein 5.1 G/DL (6.4-8.2)
[2021-07-09 04:41] LABS: Hypochromia 1+; Lymphocytes 3 % (20-55); Microcytosis 1+; Ovalocytes Slight; Platelet Estimate Decreased; Segmented Neutrophils 96 % (50-85); Total Cells Counted 100
[2021-07-09] MEDS: LEVOTHYROXINE 75 MCG TABLET PO SCH (06:14)
[2021-07-09] MEDS: DEXTROSE 5% 1,000 ML IV SCH ×3 (08:25→21:55)
[2021-07-09] MEDS: TOPIRAMATE 100 MG TABLET PO SCH ×2 (08:34→20:37)
[2021-07-09] MEDS: NICOTINE 21 MG/24 HR PATCH TRANSDERM SCH (08:34)
[2021-07-09] MEDS: ASPIRIN EC 81 MG TABLET PO SCH (08:34)
[2021-07-09] MEDS: METOPROLOL TARTRATE 25 MG TABLET PO SCH ×2 (08:35→20:37)
[2021-07-09] MEDS: DOCUSATE/SENNA 50-8.6 MG TABLET PO SCH ×2 (08:35→20:37)
[2021-07-09] MEDS: LACTULOSE 20 GM/30 ML UDCUP PO SCH (08:35)
[2021-07-09] MEDS: busPIRone 10 MG TABLET PO SCH ×2 (08:37→20:37)
[2021-07-09 09:19] LABS: INR 1.3; PT Patient Result 14.6 SECS (10.5-12.0)
[2021-07-09] MEDS: cefTRIAXone 1,000 MG in SODIUM CHLORIDE 0.9% 100 ML IV SCH (11:41)
[2021-07-09] MEDS: VANCOMYCIN INJ 1,000 MG in SODIUM CHLORIDE 0.9% 250 ML IV SCH (13:10)
[2021-07-09] MEDS: WARFARIN 5 MG TABLET PO SCH (18:24)
[2021-07-09] MEDS: DIVALPROEX 250 MG TABLET PO SCH (20:37)
[2021-07-09] MEDS: SIMVASTATIN 40 MG TABLET PO SCH (20:38)
[2021-07-09] MEDS: PANTOPRAZOLE 40 MG VIAL IV SCH (20:38)
[2021-07-10] MEDS: ENOXAPARIN 80 MG/0.8 ML SYRINGE SUBCUT SCH ×2 (00:01→14:41)
[2021-07-10] MEDS: ALBUTEROL/IPRATROPIUM 3 ML NEB RESP TX SCH ×4 (00:20→19:30)
[2021-07-10] MEDS: methylPREDNISolone SOD SUC 40 MG/1 ML VIAL IV SCH ×3 (04:08→18:00)
[2021-07-10 05:18] LABS: Basophils % 0.1 % (0.0-0.8); Eosinophils % 0.2 % (0.00-10.9); Hematocrit 23.6 VOL% (42.0-52.0); Hemoglobin 7.4 GM/DL (14.0-18.0); Immature Granulocytes % 3.6 %; Lymphocytes # 0.9 10*3/uL (1.4-4.0); Lymphocytes % 5.7 % (21.2-54.2); Mean Corpuscular HGB Conc 31.4 GM/DL (32-36); Mean Corpuscular Volume 94.4 FL (87-102); Mean Platelet Volume 10.5 FL (9.6-12.0); Monocytes % 3.7 % (1.7-12.7); Neutrophils % 86.7 % (38.7-73.9); Platelet Count 132 T/CUMM (130-400); Red Cell Distribution Width 15.8 % (9.3-17.3); White Blood Count 16.4 T/CUMM (4-12)
[2021-07-10 05:28] LABS: INR 1.4; PT Patient Result 15.1 SECS (10.5-12.0)
[2021-07-10 05:49] LABS: Anisocytosis 1+; Band Neutrophils 11 % (0-10); Eosinophils 1 % (0-10); Lymphocytes 4 % (20-55); Myelocytes 1 %; Platelet Estimate Adequate; Segmented Neutrophils 80 % (50-85); Total Cells Counted 100
[2021-07-10] MEDS: INSULIN LISPRO 100 UNIT/ML SUBCUT SCH ×3 (05:49→17:25)
[2021-07-10 05:50] LABS: Macrocytosis Slight
[2021-07-10] MEDS: VANCOMYCIN INJ 1,000 MG in SODIUM CHLORIDE 0.9% 250 ML IV SCH (06:00)
[2021-07-10] MEDS: METOCLOPRAMIDE 10 MG/2 ML VIAL IV SCH ×4 (06:00→18:01)
[2021-07-10] MEDS: LEVOTHYROXINE 75 MCG TABLET PO SCH (06:00)
[2021-07-10 06:05] LABS: Albumin 1.5 G/DL (3.4-5.0); Bilirubin,Total 0.5 MG/DL (0.20-1.00); Calcium 8.4 MG/DL (8.5-10.1); Osmolality,Calculated 297.4 MOS/KG (273-304); Potassium 3.4 MMOL/L (3.5-5.1)
[2021-07-10] MEDS ORDERED: WARFARIN 3 MG TABLET PO ONE (10:05)
[2021-07-10] MEDS: ASPIRIN EC 81 MG TABLET PO SCH (10:32)
[2021-07-10] MEDS: DOCUSATE/SENNA 50-8.6 MG TABLET PO SCH ×2 (10:32→21:06)
[2021-07-10] MEDS: TOPIRAMATE 100 MG TABLET PO SCH ×2 (10:32→21:07)
[2021-07-10] MEDS: METOPROLOL TARTRATE 25 MG TABLET PO SCH ×2 (10:33→21:07)
[2021-07-10] MEDS: LACTULOSE 20 GM/30 ML UDCUP PO SCH (10:33)
[2021-07-10] MEDS: busPIRone 10 MG TABLET PO SCH ×2 (10:33→21:06)
[2021-07-10] MEDS: NICOTINE 21 MG/24 HR PATCH TRANSDERM SCH (10:34)
[2021-07-10] MEDS: cefTRIAXone 1,000 MG in SODIUM CHLORIDE 0.9% 100 ML IV SCH (10:35)
[2021-07-10] MEDS: DEXTROSE 5% 1,000 ML IV SCH (13:06)
[2021-07-10] MEDS: WARFARIN 5 MG TABLET PO SCH (18:01)
[2021-07-10] MEDS: DIVALPROEX 250 MG TABLET PO SCH (21:07)
[2021-07-10] MEDS: PANTOPRAZOLE 40 MG VIAL IV SCH (21:07)
[2021-07-10] MEDS: SIMVASTATIN 40 MG TABLET PO SCH (21:08)
[2021-07-11] MEDS: ALBUTEROL/IPRATROPIUM 3 ML NEB RESP TX SCH ×3 (00:25→18:14)
[2021-07-11] MEDS: INSULIN LISPRO 100 UNIT/ML SUBCUT SCH ×5 (00:50→23:35)
[2021-07-11] MEDS: DEXTROSE 5% 1,000 ML IV SCH ×4 (00:50→16:05)
[2021-07-11] MEDS: ENOXAPARIN 80 MG/0.8 ML SYRINGE SUBCUT SCH (00:53)
[2021-07-11] MEDS: METOCLOPRAMIDE 10 MG/2 ML VIAL IV SCH ×4 (00:53→18:30)
[2021-07-11] MEDS: VANCOMYCIN INJ 1,000 MG in SODIUM CHLORIDE 0.9% 250 ML IV SCH ×2 (02:16→18:30)
[2021-07-11] MEDS: methylPREDNISolone SOD SUC 40 MG/1 ML VIAL IV SCH ×2 (02:16→12:18)
[2021-07-11] MEDS: LEVOTHYROXINE 75 MCG TABLET PO SCH (06:09)
[2021-07-11 07:45] LABS: Basophils % 0.1 % (0.0-0.8); Eosinophils % 0.1 % (0.00-10.9); Hematocrit 20.1 VOL% (42.0-52.0); Immature Granulocytes Absolute 0.32 #; Lymphocytes # 0.5 10*3/uL (1.4-4.0); Mean Corpuscular HGB Conc 31.3 GM/DL (32-36); Mean Corpuscular Volume 93.5 FL (87-102); Mean Platelet Volume 10.5 FL (9.6-12.0); Monocytes % 2.8 % (1.7-12.7); Platelet Count 169 T/CUMM (130-400); Red Blood Count 2.15 MC/CUMM (3.8-5.5); Red Cell Distribution Width 16.5 % (9.3-17.3); White Blood Count 15.9 T/CUMM (4-12)
[2021-07-11 07:49] LABS: Hemoglobin 6.3 GM/DL (14.0-18.0)
[2021-07-11] MEDS ORDERED: SODIUM CHLORIDE 0.9% 1,000 ML IV PRN (07:54)
[2021-07-11 07:55] LABS: PT Patient Result 21.4 SECS (10.5-12.0)
[2021-07-11 08:07] LABS: Hypochromia 2+; Lymphocytes 1 % (20-55); Microcytosis 1+; Platelet Estimate Adequate; Segmented Neutrophils 98 % (50-85); Total Cells Counted 100
[2021-07-11 08:09] LABS: Calcium 8.3 MG/DL (8.5-10.1); Osmolality,Calculated 285.3 MOS/KG (273-304); Potassium 3.7 MMOL/L (3.5-5.1)
[2021-07-11] MEDS: DOCUSATE/SENNA 50-8.6 MG TABLET PO SCH ×2 (09:20→20:50)
[2021-07-11] MEDS: busPIRone 10 MG TABLET PO SCH ×2 (09:20→20:50)
[2021-07-11] MEDS: METOPROLOL TARTRATE 25 MG TABLET PO SCH ×2 (09:20→20:50)
[2021-07-11] MEDS: TOPIRAMATE 100 MG TABLET PO SCH ×2 (09:20→20:50)
[2021-07-11] MEDS: ASPIRIN EC 81 MG TABLET PO SCH (09:20)
[2021-07-11] MEDS: NICOTINE 21 MG/24 HR PATCH TRANSDERM SCH (09:21)
[2021-07-11] MEDS: LACTULOSE 20 GM/30 ML UDCUP PO SCH (09:21)
[2021-07-11] MEDS: cefTRIAXone 1,000 MG in SODIUM CHLORIDE 0.9% 100 ML IV SCH (11:40)
[2021-07-11] MEDS: WARFARIN 5 MG TABLET PO SCH (18:30)
[2021-07-11] MEDS: SIMVASTATIN 40 MG TABLET PO SCH (20:50)
[2021-07-11] MEDS: DIVALPROEX 250 MG TABLET PO SCH (20:50)
[2021-07-11] MEDS: PANTOPRAZOLE 40 MG VIAL IV SCH (20:51)
[2021-07-12] MEDS: METOCLOPRAMIDE 10 MG/2 ML VIAL IV SCH ×4 (00:42→18:02)
[2021-07-12] MEDS: ALBUTEROL/IPRATROPIUM 3 ML NEB RESP TX SCH ×5 (01:02→23:22)
[2021-07-12] MEDS: methylPREDNISolone SOD SUC 40 MG/1 ML VIAL IV SCH ×2 (02:10→15:18)
[2021-07-12] MEDS: DEXTROSE 5% 1,000 ML IV SCH ×3 (02:18→19:23)
[2021-07-12] MEDS: INSULIN LISPRO 100 UNIT/ML SUBCUT SCH ×3 (05:55→17:21)
[2021-07-12] MEDS: LEVOTHYROXINE 75 MCG TABLET PO SCH (06:20)
[2021-07-12 06:39] LABS: Basophils % 0.1 % (0.0-0.8); Eosinophils # 0.1 10*3/uL (0.0-0.87); Eosinophils % 0.3 % (0.00-10.9); Hematocrit 26.7 VOL% (42.0-52.0); Hemoglobin 8.7 GM/DL (14.0-18.0); Immature Granulocytes Absolute 0.34 #; Lymphocytes # 0.6 10*3/uL (1.4-4.0); Lymphocytes % 3.2 % (21.2-54.2); Mean Corpuscular HGB Conc 32.6 GM/DL (32-36); Mean Corpuscular Volume 91.1 FL (87-102); Mean Platelet Volume 10.4 FL (9.6-12.0); Monocytes % 4.1 % (1.7-12.7); Neutrophils % 90.3 % (38.7-73.9); Platelet Count 189 T/CUMM (130-400); Red Blood Count 2.93 MC/CUMM (3.8-5.5); Red Cell Distribution Width 16.2 % (9.3-17.3); White Blood Count 17.4 T/CUMM (4-12)
[2021-07-12 06:57] LABS: Hypochromia 1+; Lymphocytes 4 % (20-55); Microcytosis 1+; Platelet Estimate Adequate; Segmented Neutrophils 95 % (50-85); Total Cells Counted 100
[2021-07-12 07:14] LABS: Calcium 7.9 MG/DL (8.5-10.1); Osmolality,Calculated 279.4 MOS/KG (273-304); Potassium 3.7 MMOL/L (3.5-5.1)
[2021-07-12] MEDS: METOPROLOL TARTRATE 25 MG TABLET PO SCH ×2 (09:46→22:05)
[2021-07-12] MEDS: ASPIRIN EC 81 MG TABLET PO SCH (09:46)
[2021-07-12] MEDS: busPIRone 10 MG TABLET PO SCH ×2 (09:46→22:06)
[2021-07-12] MEDS: TOPIRAMATE 100 MG TABLET PO SCH ×2 (09:46→22:06)
[2021-07-12] MEDS: DOCUSATE/SENNA 50-8.6 MG TABLET PO SCH ×2 (09:46→22:07)
[2021-07-12] MEDS: NICOTINE 21 MG/24 HR PATCH TRANSDERM SCH (09:47)
[2021-07-12] MEDS: LACTULOSE 20 GM/30 ML UDCUP PO SCH (09:48)
[2021-07-12 11:16] LABS: INR 1.5; PT Patient Result 16.7 SECS (10.5-12.0)
[2021-07-12] MEDS: cefTRIAXone 1,000 MG in SODIUM CHLORIDE 0.9% 100 ML IV SCH (12:34)
[2021-07-12] MEDS: VANCOMYCIN INJ 1,000 MG in SODIUM CHLORIDE 0.9% 250 ML IV SCH (15:17)
[2021-07-12] MEDS: WARFARIN 5 MG TABLET PO SCH (17:46)
[2021-07-12] MEDS: DIVALPROEX 250 MG TABLET PO SCH (22:05)
[2021-07-12] MEDS: SIMVASTATIN 40 MG TABLET PO SCH (22:06)
[2021-07-12] MEDS: PANTOPRAZOLE 40 MG VIAL IV SCH (22:07)
[2021-07-13] MEDS: METOCLOPRAMIDE 10 MG/2 ML VIAL IV SCH ×4 (00:10→17:44)
[2021-07-13] MEDS: INSULIN LISPRO 100 UNIT/ML SUBCUT SCH ×4 (00:35→18:36)
[2021-07-13] MEDS: ALBUTEROL/IPRATROPIUM 3 ML NEB RESP TX SCH ×4 (00:51→19:10)
[2021-07-13] MEDS: methylPREDNISolone SOD SUC 40 MG/1 ML VIAL IV SCH ×2 (02:50→13:39)
[2021-07-13 06:11] LABS: Basophils % 0.1 % (0.0-0.8); Eosinophils % 0.1 % (0.00-10.9); Hematocrit 24.1 VOL% (42.0-52.0); Hemoglobin 7.9 GM/DL (14.0-18.0); Immature Granulocytes % 1.8 %; Immature Granulocytes Absolute 0.27 #; Lymphocytes # 0.8 10*3/uL (1.4-4.0); Lymphocytes % 5.4 % (21.2-54.2); Mean Corpuscular HGB Conc 32.8 GM/DL (32-36); Mean Corpuscular Volume 93.8 FL (87-102); Monocytes % 7.1 % (1.7-12.7); Neutrophils % 85.5 % (38.7-73.9); Platelet Count 227 T/CUMM (130-400); Red Blood Count 2.57 MC/CUMM (3.8-5.5); Red Cell Distribution Width 16.7 % (9.3-17.3); White Blood Count 14.7 T/CUMM (4-12)
[2021-07-13 06:19] LABS: INR 1.5; PT Patient Result 15.8 SECS (10.5-12.0)
[2021-07-13 06:36] LABS: Albumin 1.6 G/DL (3.4-5.0); Bilirubin,Total 0.4 MG/DL (0.20-1.00); Calcium 7.8 MG/DL (8.5-10.1); Potassium 3.4 MMOL/L (3.5-5.1); Total Protein 4.8 G/DL (6.4-8.2)
[2021-07-13] MEDS: LEVOTHYROXINE 75 MCG TABLET PO SCH (06:48)
[2021-07-13] MEDS: VANCOMYCIN INJ 1,000 MG in SODIUM CHLORIDE 0.9% 250 ML IV SCH (06:52)
[2021-07-13] MEDS ORDERED: POTASSIUM CHLORIDE 20 MEQ TABLET PO ONE (09:02)
[2021-07-13] MEDS: TOPIRAMATE 100 MG TABLET PO SCH ×2 (09:40→20:59)
[2021-07-13] MEDS: NICOTINE 21 MG/24 HR PATCH TRANSDERM SCH (09:47)
[2021-07-13] MEDS: LACTULOSE 20 GM/30 ML UDCUP PO SCH (09:52)
[2021-07-13] MEDS: ASPIRIN EC 81 MG TABLET PO SCH (09:53)
[2021-07-13] MEDS: METOPROLOL TARTRATE 25 MG TABLET PO SCH ×2 (09:54→20:53)
[2021-07-13] MEDS: busPIRone 10 MG TABLET PO SCH ×2 (09:55→21:00)
[2021-07-13] MEDS: DOCUSATE/SENNA 50-8.6 MG TABLET PO SCH ×2 (09:56→20:58)
[2021-07-13] MEDS: DEXTROSE 5% 1,000 ML IV SCH (10:00)
[2021-07-13] MEDS: cefTRIAXone 1,000 MG in SODIUM CHLORIDE 0.9% 100 ML IV SCH (12:06)
[2021-07-13] MEDS: DIVALPROEX 250 MG TABLET PO SCH (20:53)
[2021-07-13] MEDS: SIMVASTATIN 40 MG TABLET PO SCH (20:53)
[2021-07-13] MEDS: PANTOPRAZOLE 40 MG VIAL IV SCH (20:55)
[2021-07-14] MEDS: ALBUTEROL/IPRATROPIUM 3 ML NEB RESP TX SCH ×4 (00:13→19:34)
[2021-07-14] MEDS: DEXTROSE 5% 1,000 ML IV SCH ×3 (00:20→20:15)
[2021-07-14] MEDS: METOCLOPRAMIDE 10 MG/2 ML VIAL IV SCH ×5 (00:30→23:19)
[2021-07-14] MEDS: VANCOMYCIN INJ 1,000 MG in SODIUM CHLORIDE 0.9% 250 ML IV SCH (01:00)
[2021-07-14] MEDS: methylPREDNISolone SOD SUC 40 MG/1 ML VIAL IV SCH ×2 (02:26→16:00)
[2021-07-14] MEDS: LEVOTHYROXINE 75 MCG TABLET PO SCH (08:11)
[2021-07-14 08:16] LABS: Basophils % 0.2 % (0.0-0.8); Eosinophils # 0.1 10*3/uL (0.0-0.87); Eosinophils % 0.7 % (0.00-10.9); Hematocrit 24.6 VOL% (42.0-52.0); Hemoglobin 7.9 GM/DL (14.0-18.0); Immature Granulocytes % 1.5 %; Immature Granulocytes Absolute 0.16 #; Lymphocytes % 9.4 % (21.2-54.2); Mean Corpuscular HGB Conc 32.1 GM/DL (32-36); Mean Corpuscular Volume 92.8 FL (87-102); Monocytes % 8.9 % (1.7-12.7); Neutrophils % 79.3 % (38.7-73.9); Platelet Count 244 T/CUMM (130-400); Red Blood Count 2.65 MC/CUMM (3.8-5.5); Red Cell Distribution Width 17.4 % (9.3-17.3); White Blood Count 10.7 T/CUMM (4-12)
[2021-07-14 08:34] LABS: Osmolality,Calculated 273.7 MOS/KG (273-304); Potassium 3.2 MMOL/L (3.5-5.1)
[2021-07-14] MEDS: DOCUSATE/SENNA 50-8.6 MG TABLET PO SCH ×2 (09:52→20:17)
[2021-07-14] MEDS: busPIRone 10 MG TABLET PO SCH ×2 (09:52→20:17)
[2021-07-14] MEDS: TOPIRAMATE 100 MG TABLET PO SCH ×2 (09:52→20:17)
[2021-07-14] MEDS: ASPIRIN EC 81 MG TABLET PO SCH (09:52)
[2021-07-14] MEDS: LACTULOSE 20 GM/30 ML UDCUP PO SCH ×2 (09:53→10:02)
[2021-07-14] MEDS: NICOTINE 21 MG/24 HR PATCH TRANSDERM SCH (09:53)
[2021-07-14] MEDS: METOPROLOL TARTRATE 25 MG TABLET PO SCH ×2 (09:54→20:17)
[2021-07-14] MEDS: INSULIN LISPRO 100 UNIT/ML SUBCUT SCH ×4 (09:59→18:24)
[2021-07-14] MEDS ORDERED: POTASSIUM CHLORIDE 20 MEQ TABLET PO ONE (15:33)
[2021-07-14] MEDS: PANTOPRAZOLE 40 MG VIAL IV SCH (20:15)
[2021-07-14] MEDS: DIVALPROEX 250 MG TABLET PO SCH (20:17)
[2021-07-14] MEDS: SIMVASTATIN 40 MG TABLET PO SCH (20:17)
[2021-07-15] MEDS: ALBUTEROL/IPRATROPIUM 3 ML NEB RESP TX SCH ×4 (00:17→19:36)
[2021-07-15] MEDS: methylPREDNISolone SOD SUC 40 MG/1 ML VIAL IV SCH (02:17)
[2021-07-15 05:17] LABS: Hematocrit 26.3 VOL% (42.0-52.0); Hemoglobin 8.3 GM/DL (14.0-18.0); Immature Granulocytes % 1.1 %; Immature Granulocytes Absolute 0.15 #; Lymphocytes # 0.3 10*3/uL (1.4-4.0); Lymphocytes % 1.9 % (21.2-54.2); Mean Corpuscular HGB Conc 31.6 GM/DL (32-36); Mean Corpuscular Volume 95.6 FL (87-102); Mean Platelet Volume 9.6 FL (9.6-12.0); Monocytes % 4.3 % (1.7-12.7); Neutrophils % 92.7 % (38.7-73.9); Platelet Count 283 T/CUMM (130-400); Red Blood Count 2.75 MC/CUMM (3.8-5.5); White Blood Count 13.2 T/CUMM (4-12)
[2021-07-15 05:29] LABS: INR 1.2; PT Patient Result 13.5 SECS (10.5-12.0)
[2021-07-15 05:42] LABS: Anisocytosis 2+; Band Neutrophils 6 % (0-10); Lymphocytes 5 % (20-55); Platelet Estimate Normal; Segmented Neutrophils 87 % (50-85); Total Cells Counted 100
[2021-07-15 05:43] LABS: Macrocytosis 1+
[2021-07-15 05:47] LABS: Calcium 8.1 MG/DL (8.5-10.1); Osmolality,Calculated 284.1 MOS/KG (273-304); Potassium 3.9 MMOL/L (3.5-5.1)
[2021-07-15] MEDS: METOCLOPRAMIDE 10 MG/2 ML VIAL IV SCH ×3 (06:11→17:43)
[2021-07-15] MEDS: LEVOTHYROXINE 75 MCG TABLET PO SCH (06:11)
[2021-07-15] MEDS: DOCUSATE/SENNA 50-8.6 MG TABLET PO SCH ×2 (09:04→21:21)
[2021-07-15] MEDS: busPIRone 10 MG TABLET PO SCH ×2 (09:04→21:21)
[2021-07-15] MEDS: TOPIRAMATE 100 MG TABLET PO SCH ×2 (09:04→21:21)
[2021-07-15] MEDS: ASPIRIN EC 81 MG TABLET PO SCH (09:04)
[2021-07-15] MEDS: NICOTINE 21 MG/24 HR PATCH TRANSDERM SCH (09:05)
[2021-07-15] MEDS: LACTULOSE 20 GM/30 ML UDCUP PO SCH ×2 (09:07→13:24)
[2021-07-15] MEDS: METOPROLOL TARTRATE 25 MG TABLET PO SCH ×2 (09:07→21:22)
[2021-07-15] MEDS ORDERED: TUBERCULIN SKIN TEST 0.1 ML SYRINGE INTRADERM ONE (10:00)
[2021-07-15] MEDS: DEXTROSE 5% 1,000 ML IV SCH ×2 (14:50→16:32)
[2021-07-15] MEDS: SIMVASTATIN 40 MG TABLET PO SCH (21:21)
[2021-07-15] MEDS: PANTOPRAZOLE 40 MG VIAL IV SCH (21:22)
[2021-07-15] MEDS: DIVALPROEX 250 MG TABLET PO SCH (21:24)
[2021-07-16] MEDS: METOCLOPRAMIDE 10 MG/2 ML VIAL IV SCH ×3 (01:52→12:14)
[2021-07-16] MEDS: ALBUTEROL/IPRATROPIUM 3 ML NEB RESP TX SCH ×2 (02:27→07:09)
[2021-07-16 05:20] LABS: Basophils % 0.3 % (0.0-0.8); Eosinophils # 0.1 10*3/uL (0.0-0.87); Eosinophils % 1.2 % (0.00-10.9); Hematocrit 24.1 VOL% (42.0-52.0); Hemoglobin 7.8 GM/DL (14.0-18.0); Immature Granulocytes % 0.8 %; Immature Granulocytes Absolute 0.09 #; Lymphocytes # 1.2 10*3/uL (1.4-4.0); Lymphocytes % 10.3 % (21.2-54.2); Mean Corpuscular HGB Conc 32.4 GM/DL (32-36); Mean Corpuscular Volume 94.9 FL (87-102); Mean Platelet Volume 9.5 FL (9.6-12.0); Neutrophils % 78.4 % (38.7-73.9); Platelet Count 241 T/CUMM (130-400); Red Blood Count 2.54 MC/CUMM (3.8-5.5); Red Cell Distribution Width 18.6 % (9.3-17.3); White Blood Count 11.5 T/CUMM (4-12)
[2021-07-16 05:40] LABS: Calcium 7.8 MG/DL (8.5-10.1); Osmolality,Calculated 274.7 MOS/KG (273-304); Potassium 3.5 MMOL/L (3.5-5.1)
[2021-07-16] MEDS: LEVOTHYROXINE 75 MCG TABLET PO SCH (06:50)
[2021-07-16] MEDS ORDERED: predniSONE 20 MG TABLET PO SCH (09:00)
[2021-07-16] MEDS: TOPIRAMATE 100 MG TABLET PO SCH (09:17)
[2021-07-16] MEDS: METOPROLOL TARTRATE 25 MG TABLET PO SCH (09:18)
[2021-07-16] MEDS: DOCUSATE/SENNA 50-8.6 MG TABLET PO SCH (09:18)
[2021-07-16] MEDS: busPIRone 10 MG TABLET PO SCH (09:18)
[2021-07-16] MEDS: ASPIRIN EC 81 MG TABLET PO SCH (09:18)
[2021-07-16] MEDS: NICOTINE 21 MG/24 HR PATCH TRANSDERM SCH (09:19)
[2021-07-16] MEDS: LACTULOSE 20 GM/30 ML UDCUP PO SCH (09:49)
[2021-07-16 11:47] VITALS: BP 104/58
[2021-07-16] MEDS: DEXTROSE 5% 1,000 ML IV SCH (13:20)
== END 2021-07-16 13:30 | DRG 870 ==
LOC: EDUNIT# → EDBD → N.ED 17:41 → SUATTDRO 21:55 → N.EDINP 21:55 → N.CC 22:50 → N.TELEN 07-09 16:13
PROVIDERS: ADMIT Family Medicine; ATTEND Internal Medicine

== ENCOUNTER 2022-06-10 02:17 | Inpatient (IN) ==
[2022-06-10] MEDS ORDERED: DILTIAZEM 50 MG/10 ML VIAL IV STA ×2 (02:29→06:04)
[2022-06-10] MEDS ORDERED: methylPREDNISolone SOD SUC 125 MG/2 ML VIAL IV STA (02:42)
[2022-06-10 02:45] LABS: Basophils % 0.4 % (0.0-0.8); Eosinophils # 0.2 10*3/uL (0.0-0.87); Eosinophils % 2.4 % (0.00-10.9); Hemoglobin 14.4 GM/DL (14.0-18.0); Immature Granulocytes % 0.9 %; Immature Granulocytes Absolute 0.07 #; Lymphocytes # 1.6 10*3/uL (1.4-4.0); Lymphocytes % 19.9 % (21.2-54.2); Mean Corpuscular HGB Conc 30.1 GM/DL (32-36); Mean Corpuscular Volume 98.6 FL (87-102); Mean Platelet Volume 11.5 FL (9.6-12.0); Monocytes # 0.9 10*3/uL (0.11-0.8); Monocytes % 11.4 % (1.7-12.7); Platelet Count 122 T/CUMM (130-400); Red Blood Count 4.85 MC/CUMM (3.8-5.5); Red Cell Distribution Width 17.2 % (9.3-17.3); White Blood Count 8.1 T/CUMM (4-12)
[2022-06-10 02:46] LABS: Hematocrit 47.8 VOL% (42.0-52.0)
[2022-06-10] MEDS: DILTIAZEM INJ 100 MG in SODIUM CHLORIDE 0.9% 100 ML IV SCH (02:47)
[2022-06-10 02:49] LABS: Arterial Base Excess iSTAT -2 MMOL/L (-2.5-2.5); Arterial Bicarbonate iSTAT 26.2 MMOL/L (20-26); Arterial O2 Saturation iSTAT 90 % (95-100); Arterial PCO2 iSTAT 55 MM HG (35-48); Arterial PO2 iSTAT 68 MM HG (80-95); Arterial Total CO2 iSTAT 28 MMO/L (23-27); Arterial pH iSTAT 7.282 (7.35-7.45)
[2022-06-10 02:59] LABS: INR 1.2; PT Patient Result 13.2 SECS (10.1-12.1); Partial Thromboplastin Time 31.5 SECS (23.7-32.9)
[2022-06-10 03:14] LABS: Albumin 3.4 G/DL (3.4-5.0); Bilirubin,Total 0.8 MG/DL (0.20-1.00); Calcium 9.3 MG/DL (8.5-10.1); Osmolality,Calculated 290.7 MOS/KG (273-304); Potassium 4.4 MMOL/L (3.5-5.1); Total Protein 7.6 G/DL (6.4-8.2)
[2022-06-10] MEDS ORDERED: ALBUTEROL NEB SOLN 5 MG/ML 20 ML/BOTTLE CONT NEB STA (04:00)
[2022-06-10] MEDS ORDERED: IPRATROPIUM 500 MCG/2.5 ML NEB RESP TX STA (04:01)
[2022-06-10] MEDS ORDERED: ALBUTEROL 2.5 MG/3 ML NEB RESP TX ONE (04:06)
[2022-06-10] MEDS ORDERED: MORPHINE 2 MG/1 ML SYRINGE IV PRN (04:38)
[2022-06-10] MEDS ORDERED: hydrALAZINE 20 MG/1 ML VIAL IV PRN (04:38)
[2022-06-10] MEDS ORDERED: ONDANSETRON 4 MG/2 ML VIAL IV PRN (04:38)
[2022-06-10] MEDS ORDERED: ACETAMINOPHEN 325 MG TABLET PO PRN (04:38)
[2022-06-10] MEDS ORDERED: NICOTINE 21 MG/24 HR PATCH TRANSDERM PRN (04:38)
[2022-06-10] MEDS ORDERED: FUROSEMIDE 40 MG/4 ML VIAL IV ONE (05:25)
[2022-06-10] MEDS: cefTRIAXone 1,000 MG in SODIUM CHLORIDE 0.9% 100 ML IV SCH (05:58)
[2022-06-10] MEDS: LEVOTHYROXINE 75 MCG TABLET PO SCH (05:58)
[2022-06-10] MEDS: AZITHROMYCIN INJ 500 MG in SODIUM CHLORIDE 0.9% 250 ML IV SCH (06:45)
[2022-06-10] MEDS: LEVALBUTEROL 1.25 MG/3 ML NEB RESP TX SCH ×3 (06:58→19:11)
[2022-06-10] MEDS: IPRATROPIUM 500 MCG/2.5 ML NEB RESP TX SCH ×3 (06:59→20:03)
[2022-06-10] MEDS ORDERED: SPIRONOLACTONE 25 MG TABLET PO SCH (09:00)
[2022-06-10] MEDS: PANTOPRAZOLE 40 MG TABLET PO SCH (09:12)
[2022-06-10] MEDS: APIXABAN 5 MG TABLET PO SCH ×2 (09:12→20:44)
[2022-06-10] MEDS: OMEGA 3 ACID ETHYL ESTERS 1 GM CAPSULE PO SCH (09:12)
[2022-06-10] MEDS: ASPIRIN EC 81 MG TABLET PO SCH (09:12)
[2022-06-10] MEDS: DOCUSATE/SENNA 50-8.6 MG TABLET PO SCH ×2 (09:12→20:44)
[2022-06-10] MEDS: busPIRone 10 MG TABLET PO SCH ×2 (09:13→20:44)
[2022-06-10] MEDS: FLUTICASONE 50 MCG NASAL SPRAY 16 GM BOTTLE BOTH NARES SCH ×2 (09:15→20:45)
[2022-06-10] MEDS: methylPREDNISolone SOD SUC 125 MG/2 ML VIAL IV SCH ×2 (11:45→20:36)
[2022-06-10] MEDS ORDERED: METOPROLOL TARTRATE 25 MG TABLET PO SCH (21:00)
[2022-06-10] MEDS ORDERED: SIMVASTATIN 40 MG TABLET PO SCH (21:00)
[2022-06-11] MEDS: LEVALBUTEROL 1.25 MG/3 ML NEB RESP TX SCH ×4 (00:41→19:19)
[2022-06-11] MEDS: IPRATROPIUM 500 MCG/2.5 ML NEB RESP TX SCH ×4 (00:41→19:19)
[2022-06-11] MEDS ORDERED: METOPROLOL TARTRATE 5 MG/5 ML VIAL IV ONE (02:14)
[2022-06-11] MEDS: DILTIAZEM INJ 100 MG in SODIUM CHLORIDE 0.9% 100 ML IV SCH (03:21)
[2022-06-11] MEDS: cefTRIAXone 1,000 MG in SODIUM CHLORIDE 0.9% 100 ML IV SCH (04:45)
[2022-06-11] MEDS: AZITHROMYCIN INJ 500 MG in SODIUM CHLORIDE 0.9% 250 ML IV SCH (05:26)
[2022-06-11] MEDS: methylPREDNISolone SOD SUC 125 MG/2 ML VIAL IV SCH (05:28)
[2022-06-11] MEDS: LEVOTHYROXINE 75 MCG TABLET PO SCH (05:49)
[2022-06-11 06:11] LABS: Potassium 3.2 MMOL/L (3.5-5.1)
[2022-06-11 06:39] LABS: Basophils % 0.1 % (0.0-0.8); Hematocrit 43.9 VOL% (42.0-52.0); Hemoglobin 13.7 GM/DL (14.0-18.0); Immature Granulocytes % 0.7 %; Lymphocytes # 0.4 10*3/uL (1.4-4.0); Lymphocytes % 3.1 % (21.2-54.2); Mean Corpuscular HGB Conc 31.2 GM/DL (32-36); Mean Corpuscular Volume 94.6 FL (87-102); Mean Platelet Volume 11.4 FL (9.6-12.0); Monocytes # 0.5 10*3/uL (0.11-0.8); Monocytes % 3.7 % (1.7-12.7); Neutrophils % 92.4 % (38.7-73.9); Platelet Count 107 T/CUMM (130-400); Red Blood Count 4.64 MC/CUMM (3.8-5.5); Red Cell Distribution Width 17.2 % (9.3-17.3); White Blood Count 14.2 T/CUMM (4-12)
[2022-06-11] MEDS ORDERED: DIGOXIN 0.5 MG/2 ML AMP IV ONE (06:46)
[2022-06-11 07:37] LABS: Anisocytosis 1+; Band Neutrophils 12 % (0-10); Lymphocytes 2 % (20-55); Macrocytosis 1+; Platelet Estimate Adequate; Total Cells Counted 100
[2022-06-11 07:44] LABS: Albumin 2.9 G/DL (3.4-5.0); Bilirubin,Total 0.5 MG/DL (0.20-1.00); Calcium 8.6 MG/DL (8.5-10.1); Osmolality,Calculated 290.3 MOS/KG (273-304); Potassium 5.4 MMOL/L (3.5-5.1); Total Protein 6.3 G/DL (6.4-8.2)
[2022-06-11] MEDS ORDERED: SODIUM CHLORIDE 0.9% 1,000 ML IV SCH (08:30)
[2022-06-11] MEDS ORDERED: METOPROLOL TARTRATE 50 MG TABLET PO SCH (09:00)
[2022-06-11] MEDS ORDERED: FUROSEMIDE 20 MG TABLET PO SCH (09:00)
[2022-06-11] MEDS: APIXABAN 5 MG TABLET PO SCH ×2 (09:35→20:23)
[2022-06-11] MEDS: busPIRone 10 MG TABLET PO SCH ×2 (09:35→20:23)
[2022-06-11] MEDS: DOCUSATE/SENNA 50-8.6 MG TABLET PO SCH ×2 (09:35→20:24)
[2022-06-11] MEDS: PANTOPRAZOLE 40 MG TABLET PO SCH (09:35)
[2022-06-11] MEDS: OMEGA 3 ACID ETHYL ESTERS 1 GM CAPSULE PO SCH (09:35)
[2022-06-11] MEDS: ASPIRIN EC 81 MG TABLET PO SCH (09:35)
[2022-06-11] MEDS: METOPROLOL TARTRATE 25 MG TABLET PO SCH ×2 (09:36→20:24)
[2022-06-11] MEDS: FLUTICASONE 50 MCG NASAL SPRAY 16 GM BOTTLE BOTH NARES SCH ×2 (09:37→20:29)
[2022-06-11] MEDS: ASCORBIC ACID 500 MG TABLET PO SCH ×2 (09:39→20:25)
[2022-06-11] MEDS ORDERED: ALBUTEROL 2.5 MG/3 ML NEB RESP TX PRN (10:20)
[2022-06-11] MEDS ORDERED: TIOTROPIUM BROMIDE INH SCH (10:30)
[2022-06-11] MEDS ORDERED: ACTUATION MIST INH SCH (10:30)
[2022-06-11] MEDS ORDERED: ALUMINUM/MAGNES/SIMETH MAX STR 30 ML UDCUP PO PRN (15:14)
[2022-06-11] MEDS: TOPIRAMATE 100 MG TABLET PO SCH (20:24)
[2022-06-12] MEDS: IPRATROPIUM 500 MCG/2.5 ML NEB RESP TX SCH ×2 (01:02→07:15)
[2022-06-12] MEDS: LEVALBUTEROL 1.25 MG/3 ML NEB RESP TX SCH ×2 (01:02→07:15)
[2022-06-12] MEDS: DILTIAZEM INJ 100 MG in SODIUM CHLORIDE 0.9% 100 ML IV SCH (02:18)
[2022-06-12 04:49] LABS: Hematocrit 39.9 VOL% (42.0-52.0); Hemoglobin 12.8 GM/DL (14.0-18.0); Immature Granulocytes % 0.7 %; Immature Granulocytes Absolute 0.11 #; Lymphocytes # 1.1 10*3/uL (1.4-4.0); Lymphocytes % 6.9 % (21.2-54.2); Mean Corpuscular HGB Conc 32.1 GM/DL (32-36); Mean Platelet Volume 10.7 FL (9.6-12.0); Monocytes # 1.3 10*3/uL (0.11-0.8); Monocytes % 8.5 % (1.7-12.7); Neutrophils % 83.9 % (38.7-73.9); Red Blood Count 4.29 MC/CUMM (3.8-5.5); Red Cell Distribution Width 17.3 % (9.3-17.3); White Blood Count 15.5 T/CUMM (4-12)
[2022-06-12 04:58] LABS: Platelet Count 103 T/CUMM (130-400)
[2022-06-12 05:13] LABS: Calcium 8.9 MG/DL (8.5-10.1); Osmolality,Calculated 289.1 MOS/KG (273-304); Potassium 4.1 MMOL/L (3.5-5.1)
[2022-06-12] MEDS: LEVOTHYROXINE 75 MCG TABLET PO SCH (05:43)
[2022-06-12] MEDS ORDERED: MELATONIN 3 MG TABLET PO PRN (08:06)
[2022-06-12] MEDS: METOPROLOL TARTRATE 25 MG TABLET PO SCH (08:38)
[2022-06-12] MEDS: ASPIRIN EC 81 MG TABLET PO SCH (08:38)
[2022-06-12] MEDS: DOCUSATE/SENNA 50-8.6 MG TABLET PO SCH (08:38)
[2022-06-12] MEDS: TOPIRAMATE 100 MG TABLET PO SCH (08:38)
[2022-06-12] MEDS: PANTOPRAZOLE 40 MG TABLET PO SCH (08:38)
[2022-06-12] MEDS: OMEGA 3 ACID ETHYL ESTERS 1 GM CAPSULE PO SCH (08:38)
[2022-06-12] MEDS: ASCORBIC ACID 500 MG TABLET PO SCH (08:38)
[2022-06-12] MEDS: busPIRone 10 MG TABLET PO SCH (08:38)
[2022-06-12] MEDS: APIXABAN 5 MG TABLET PO SCH (08:39)
[2022-06-12] MEDS: FLUTICASONE 50 MCG NASAL SPRAY 16 GM BOTTLE BOTH NARES SCH (08:44)
[2022-06-12] MEDS ORDERED: NON-FORMULARY MEDICATION (Sacubitril-Valsartan [Entresto] 24-26 mg Tablet) PO SCH (09:00)
[2022-06-12] MEDS ORDERED: PREGABALIN 100 MG CAPSULE PO SCH (09:00)
[2022-06-12] MEDS ORDERED: FLUTICASONE/SALMETEROL 250-50 DISKUS 14 DOSE INH SCH (09:00)
[2022-06-12] MEDS ORDERED: DAPAGLIFLOZIN 10 MG TABLET PO SCH (09:00)
[2022-06-12] MEDS ORDERED: LORATADINE 10 MG TABLET PO SCH (09:00)
[2022-06-12 09:51] VITALS: BP 107/53
[2022-06-12] MEDS ORDERED: LINACLOTIDE 145 MCG CAPSULE PO SCH (21:00)
[2022-06-12] MEDS ORDERED: DIVALPROEX ER 500 MG TABLET PO SCH (21:00)
== END 2022-06-12 10:58 | disposition home or self-care (01) | DRG 308 ==
LOC: N.ED 02:17 → N.EDINP 04:38 → N.TELES 07:35
PROVIDERS: ADMIT Internal Medicine Geriatric Medicine; ATTEND Internal Medicine Geriatric Medicine